=== PATIENT | male | born 2000 | race Caucasian/White ===

== ENCOUNTER 2024-12-19 12:26 | Inpatient (IN) | payer OTHER ==
[~2024-12-19] VITALS: Ht 170.2 cm; Wt 59.1 kg
[2024-12-19 14:41] LABS: COVID AG,FIA SOURCE NASAL SWAB
[2024-12-19 14:56] LABS: BASOPHILS % (AUTO) 0.9 % (0.0-2.0); HEMATOCRIT 46.2 % (41-53); HEMOGLOBIN 15.4 g/dL (13.5-17.5); LYMPHOCYTES # (AUTO) 1.6 K/uL (1.0-4.8); LYMPHOCYTES % (AUTO) 30.8 % (22.0-44.0); MEAN CORPUSCULAR HEMOGLOBIN 30.4 pg (26.0-34.0); MEAN CORPUSCULAR HGB CONC 33.3 G/dL (31.0-37.0); MEAN CORPUSCULAR VOLUME 91 fL (80-100); MONOCYTES # (AUTO) 0.5 K/uL (0.1-1.0); MONOCYTES % (AUTO) 9.5 % (2.0-9.0); NEUTROPHILS % (AUTO) 57.8 % (40.0-70.0); PLATELET COUNT (AUTO) 245 K/uL (150-450); RED BLOOD CELL COUNT(AUTO) 5.06 MIL/uL (4.50-5.90); RED CELL DISTRIBUTION WIDTH 13.6 % (11.5-14.5); WHITE BLOOD COUNT (AUTO) 5.3 K/uL (4.5-11.0)
[2024-12-19 15:00] LABS: SARS-COV2 (COVID) ANTIGEN,FIA Negative (Negative)
[2024-12-19 15:06] LABS: ANION GAP 8 mmol/L (8-16); CALCIUM, TOTAL 9.2 mg/dL (8.8-10.5); CARBON DIOXIDE 29 mmol/L (22-29); CHLORIDE 101 mmol/L (98-107); CREATININE 0.74 mg/dL (0.60-1.30); GLOMERULAR FILTR. RATE CALC > 60 mL/min (>60); GLUCOSE,RANDOM 87 mg/dL (70-110); POTASSIUM 4.3 mmol/L (3.5-5.1); SODIUM SERUM 138 mmol/L (136-145); UREA NITROGEN, BLOOD 17 mg/dL (7-18)
[2024-12-19 17:20] VITALS: BP 129/80; PULSE 72; RESP 18; TEMP 97.5; O2SAT 100
[2024-12-19] MEDS ORDERED: IPRATROPIUM BROMIDE 0.5 MG/2.5 ML NEB SOLUTION NEB PRN (19:00)
[2024-12-19] MEDS ORDERED: MAGNESIUM HYDROXIDE SUSPENSION 30 ML UDCUP PO PRN (19:00)
[2024-12-19] MEDS ORDERED: BISACODYL 10 MG RECTAL RECTAL SUPPOSITORY PR PRN (19:00)
[2024-12-19] MEDS ORDERED: ALBUTEROL SULFATE 2.5 MG/0.5 ML NEB SOLUTION NEB PRN (19:00)
[2024-12-19] MEDS ORDERED: ONDANSETRON HCL 4 MG/2 ML VIAL IVP PRN (19:00)
[2024-12-19] MEDS ORDERED: ZOLPIDEM TARTRATE 5 MG TABLET PO PRN (19:00)
[2024-12-19 19:30] VITALS: BP 115/79; PULSE 68; RESP 18; TEMP 97.7; O2SAT 100
[2024-12-19] MEDS ORDERED: SODIUM CHLORIDE 3% 15 ML NEB SOLUTION NEB ONE (20:47)
[2024-12-19] MEDS: HEPARIN SODIUM,PORCINE 5,000 UNITS/ML VIAL SQ SCH (23:42)
[2024-12-20 05:10] VITALS: BP 101/62; PULSE 56; RESP 18; TEMP 98.1; O2SAT 98
[2024-12-20 05:35] LABS: MTB PCR w/Rif. Resistance-SPUT NOT DETECTED (Not Detectd)
[2024-12-20 05:55] LABS: APPEARANCE,URINE CLEAR (CLEAR); BILIRUBIN,URINE NEGATIVE (NEGATIVE); COLOR,URINE YELLOW (YELLOW); GLUCOSE, URINE (UA) NEGATIVE (NEGATIVE); KETONES,URINE NEGATIVE (NEGATIVE); LEUKOCYTE ESTERASE ,URINE SMALL (NEGATIVE); NITRATE,URINE NEGATIVE (NEGATIVE); OCCULT BLOOD,URINE NEGATIVE (NEGATIVE); PROTEIN,URINE TRACE mg/dL (NEGATIVE); SPECIFIC GRAVITIY, URINE 1.034 (1.003-1.030); UROBILINOGEN,URINE <=1.0 mg/dL (<=1.0)
[2024-12-20 06:20] LABS: ALCOHOL, URINE DRUG SCREEN NEGATIVE (NEGATIVE); AMPHET/METH SCREEN,URINE NEGATIVE (NEGATIVE); BARBITURATE SCREEN, URINE NEGATIVE (NEGATIVE); BENZODIAZEPINES SCREEN,URINE NEGATIVE (NEGATIVE); CANNABINOID SCREEN,URINE NEGATIVE (NEGATIVE); COCAINE SCREEN,URINE NEGATIVE (NEGATIVE); METHADONE SCREEN, URINE NEGATIVE (NEGATIVE); OPIATE SCREEN,URINE NEGATIVE (NEGATIVE); PHENCYCLIDINE SCREEN,URINE NEGATIVE (NEGATIVE)
[2024-12-20 07:12] LABS: RBC,URINE 0-2 /HPF (0-2)
[2024-12-20 07:13] LABS: BACTERIA,URINE Few /HPF (None Seen)
[2024-12-20 08:00] VITALS: BP 103/62; PULSE 56; RESP 18; TEMP 97.7; O2SAT 99
[2024-12-20] MEDS: PANTOPRAZOLE SODIUM 40 MG DR TABLET PO SCH (08:24)
[2024-12-20 09:34] LABS: HIV 1-2 SCREEN 4TH GEN W/RFLX Non Reactive (Non Reactive)
[2024-12-20 10:51] LABS: MTB PCR w/Rif. Resistance-SPUT NOT DETECTED (Not Detectd)
[2024-12-20] MEDS ORDERED: SODIUM CHLORIDE 3% 15 ML NEB SOLUTION NEB ONE (13:36)
[2024-12-20] MEDS: SERTRALINE HCL 50 MG TABLET PO SCH (15:02)
[2024-12-20 20:15] VITALS: BP 112/45; PULSE 67; RESP 18; TEMP 98.4; O2SAT 99
[2024-12-21 04:59] VITALS: BP 104/59; PULSE 61; RESP 18; TEMP 98.2; O2SAT 99
[2024-12-21 08:30] VITALS: BP 106/66; PULSE 72; RESP 18; TEMP 98.1; O2SAT 99
[2024-12-21 19:30] VITALS: BP 103/62; PULSE 60; RESP 18; TEMP 98.2; O2SAT 100
[2024-12-22 04:25] VITALS: BP 100/60; PULSE 60; RESP 18; TEMP 98.1; O2SAT 98
[2024-12-22 09:01] VITALS: BP 115/65; PULSE 63; RESP 18; TEMP 98.1; O2SAT 96
[2024-12-22 19:52] VITALS: BP 106/67; PULSE 75; RESP 18; TEMP 97.7; O2SAT 95
[2024-12-23 05:11] VITALS: BP 106/68; PULSE 67; RESP 20; TEMP 98.6; O2SAT 98
[2024-12-23 07:07] LABS: QUANTIFERON+, Nil Value 0.04 IU/mL; QUANTIFERON+,Mitogen Value >10.00 IU/mL; QUANTIFERON+,TB1 Antigen Value 0.06 IU/mL; QUANTIFERON+,TB2 Antigen Value 0.06 IU/mL; QUANTIFERON, TB GOLD PLUS Negative (Negative)
[2024-12-23 08:33] VITALS: BP 104/58; PULSE 55; RESP 18; TEMP 98.1; O2SAT 100
[2024-12-23 19:30] VITALS: BP 108/58; PULSE 54; RESP 18; TEMP 98.1; O2SAT 99
[2024-12-24 04:10] VITALS: BP 114/70; PULSE 67; RESP 18; TEMP 97.9; O2SAT 99
[2024-12-24 07:45] VITALS: BP 121/67; PULSE 69; RESP 18; TEMP 98.1; O2SAT 100
[2024-12-24] MEDS: ACETAMINOPHEN 325 MG TABLET PO PRN (13:07)
[2024-12-24 19:52] VITALS: BP 110/62; PULSE 55; RESP 18; TEMP 98.1; O2SAT 97
[2024-12-24] MEDS: RisperiDONE 1 MG TABLET PO SCH (20:08)
[2024-12-25 05:00] VITALS: BP 104/62; PULSE 60; RESP 18; TEMP 97.3; O2SAT 100
[2024-12-25 08:10] VITALS: BP 111/63; PULSE 63; RESP 18; TEMP 97.9; O2SAT 99
[2024-12-25 19:50] VITALS: BP 107/60; PULSE 55; RESP 18; TEMP 97.9; O2SAT 100
[2024-12-26 04:40] VITALS: BP 107/54; PULSE 60; RESP 18; TEMP 97.9; O2SAT 100
[2024-12-26 08:16] VITALS: BP 108/56; PULSE 58; RESP 18; TEMP 97.9; O2SAT 99
[2024-12-26] MEDS ORDERED: SERT-158 PO (15:50)
[2024-12-26] MEDS ORDERED: ACET-2247 PO (15:51)
[2024-12-26 17:43] VITALS: BP 110/55; PULSE 62; RESP 18; TEMP 97.9; O2SAT 98
[2024-12-26 19:46] VITALS: BP 114/62; PULSE 55; RESP 18; TEMP 98.1; O2SAT 97
[2024-12-27 05:39] VITALS: BP 116/68; PULSE 63; RESP 18; TEMP 98.1; O2SAT 98
[2024-12-27 08:22] VITALS: BP 103/60; PULSE 59; RESP 18; TEMP 97.2; O2SAT 100
== END 2024-12-27 11:50 | DRG 204 ==
LOC: EMS 12:31 → EDBEDREQ 14:43 → EDH 15:29 → 6S 17:05
PROVIDERS: ADMIT Hospitalist; ATTEND Hospitalist
DX: R06.02 Shortness of breath (principal); F33.2 Major depressive disorder, recurrent severe without psychotic features; R45.851 Suicidal ideations; E44.0 Moderate protein-calorie malnutrition; Z20.822 Contact with and (suspected) exposure to COVID-19; Z68.20 Body mass index [BMI] 20.0-20.9, adult; Z79.899 Other long term (current) drug therapy
CPT/HCPCS: 71046; 80048; 80307; 81001; 85025; 86480; 87015; 87086; 87206; 87389; 87556; 93005; 94640; 99285; J1644; 36415-L1; 36415-TC